=== PATIENT | female | born 1940 | race Caucasian/White ===

== ENCOUNTER 2021-08-10 08:47 | Observation (INO) ==
[2021-08-10] MEDS ORDERED: Ondansetron 4 mg VIAL 2 MG/ML 2 ml VIAL IV ONE (09:06)
[2021-08-10] MEDS ORDERED: Lactated Ringers 1000 ml BAG 1,000 ML IV ONE (09:06)
[2021-08-10 10:07] LABS: ABS Lymphocytes 0.3 10^3/ul (1.0-4.8); ABS Monocytes 0.6 10^3/ul (0-0.8); ABS Neutrophils 9.7 10^3/ul (1.5-7.7); Hematocrit 46 % (35-47); Hemoglobin 15.2 g/dL (12.0-16.0); Mean Corpuscular HGB Conc 33 g/dL (31-36); Mean Corpuscular Hemoglobin 31 pg (27-31); Mean Corpuscular Volume 93 fL (80-97); Mean Platelet Volume 9.6 fL (7.4-10.4); Platelet Count 164 10^3/uL (150-450); Red Cell Distribution Width 13 % (10-15); White Blood Count 10.7 10^3/uL (3.5-10.8)
[2021-08-10 10:34] LABS: Albumin 4.6 g/dL (3.2-5.2); Albumin/Globulin Ratio 1.6 (1-3); C Reactive Protein 5.3 mg/L (<8.01); Calcium 9.5 mg/dL (8.6-10.3); Globulin 2.8 g/dL (2-4); Total Bilirubin 0.7 mg/dL (0.2-1.0); Total Protein 7.4 g/dL (6.4-8.9); eGFR CKD-EPI 87.5 (>60)
[2021-08-10] MEDS ORDERED: KCL 20 MEQ/100 ML IVPREMIX 20 MEQ/100 ML BAG IV ONE (10:53)
[2021-08-10] MEDS ORDERED: Ondansetron 4 mg VIAL 2 MG/ML 2 ml VIAL IV PRN (11:05)
[2021-08-10 11:38] LABS: Magnesium 2.1 mg/dL (1.9-2.7)
[2021-08-10 11:50] LABS: High Sensitivity Troponin 1 Hr 7 pg/mL (<15)
[2021-08-10] MEDS ORDERED: Lactated Ringers 1000 ml BAG 1,000 ML IV SCH (12:00)
[2021-08-10] MEDS: Potassium Chloride IV 20 MEQ in Lactated Ringers 1000 ml BAG 1,000 ML IVPB SCH (13:06)
[2021-08-10] MEDS ORDERED: NFT: IPRATROPIUM BR (NF)0.03% NASAL 1 SPRAY BTL BOTH NARES PRN (15:52)
[2021-08-10] MEDS ORDERED: NFT: Azelastine/Fluticasone 137-50 MCG BTL (NF) BOTH NARES PRN (15:52)
[2021-08-10] MEDS: Heparin 5000 UNITS/ML 1 mL VIAL SUBCUT SCH (21:01)
[2021-08-11] MEDS: Potassium Chloride IV 20 MEQ in Lactated Ringers 1000 ml BAG 1,000 ML IVPB SCH ×3 (03:08→17:53)
[2021-08-11 04:33] LABS: Urine Appearance Clear; Urine Bilirubin Negative (Negative); Urine Blood Negative (Negative); Urine Color Yellow; Urine Glucose Negative (Negative); Urine Ketones Negative (Negative); Urine Nitrite Negative (Negative); Urine Protein Negative (Negative); Urine Specific Gravity 1.006 (1.002-1.030); Urine Urobilinogen Negative (Negative)
[2021-08-11 05:53] LABS: Urine Bacteria Absent (Absent); Urine Red Blood Cell Absent (Absent); Urine Squamous Epithelial Cell Present (Absent); Urine White Blood Cell 1+(6-10/hpf) (Absent)
[2021-08-11 06:25] LABS: ABS Eosinophils 0.1 10^3/ul (0-0.6); ABS Lymphocytes 1.8 10^3/ul (1.0-4.8); ABS Monocytes 0.8 10^3/ul (0-0.8); ABS Neutrophils 4.7 10^3/ul (1.5-7.7); Eosinophil % 0.9 %; Hematocrit 40 % (35-47); Hemoglobin 13.1 g/dL (12.0-16.0); Lymphocyte % 24.3 %; Mean Corpuscular HGB Conc 33 g/dL (31-36); Mean Corpuscular Hemoglobin 31 pg (27-31); Mean Corpuscular Volume 93 fL (80-97); Mean Platelet Volume 9.6 fL (7.4-10.4); Nucleated Red Blood Cells % 0.1; Platelet Count 153 10^3/uL (150-450); Red Blood Count 4.27 10^6 /uL (3.70-4.87); Red Cell Distribution Width 13 % (10-15); White Blood Count 7.3 10^3/uL (3.5-10.8)
[2021-08-11 07:12] LABS: Calcium 9.2 mg/dL (8.6-10.3); Potassium 3.6 mmol/L (3.5-5.0); eGFR CKD-EPI 87.2 (>60)
[2021-08-11] MEDS: Heparin 5000 UNITS/ML 1 mL VIAL SUBCUT SCH ×2 (09:20→21:32)
[2021-08-12] MEDS: Potassium Chloride IV 20 MEQ in Lactated Ringers 1000 ml BAG 1,000 ML IVPB SCH (07:10)
[2021-08-12] MEDS: Heparin 5000 UNITS/ML 1 mL VIAL SUBCUT SCH (07:11)
[2021-08-12 07:26] VITALS: BP 140/52
== END 2021-08-12 10:20 | disposition home or self-care (01) ==
LOC: ED 08:47 → INTOOBSV 11:05 → EDHOLD 11:05 → MED 15:33
PROVIDERS: ADMIT Student in an Organized Health Care Education/Training Program; ATTEND Student in an Organized Health Care Education/Training Program

== ENCOUNTER 2022-01-26 14:20 | Observation (INO) ==
[2022-01-26 16:04] LABS: ABS Lymphocytes 0.4 10^3/ul (1.0-4.8); ABS Neutrophils 11.6 10^3/ul (1.5-7.7); Hematocrit 44 % (35-47); Hemoglobin 14.7 g/dL (12.0-16.0); Lymphocyte % 2.8 %; Mean Corpuscular HGB Conc 33 g/dL (31-36); Mean Corpuscular Hemoglobin 31 pg (27-31); Mean Corpuscular Volume 92 fL (80-97); Mean Platelet Volume 9.7 fL (7.4-10.4); Platelet Count 182 10^3/uL (150-450); Red Blood Count 4.76 10^6 /uL (3.70-4.87); Red Cell Distribution Width 13 % (10-15)
[2022-01-26 16:08] LABS: INR 1.02 (0.89-1.11)
[2022-01-26] MEDS ORDERED: Ondansetron 4 mg VIAL 2 MG/ML 2 ml VIAL IV ONE (16:09)
[2022-01-26 16:32] LABS: Albumin 4.6 g/dL (3.2-5.2); Albumin/Globulin Ratio 1.8 (1-3); Calcium 9.9 mg/dL (8.6-10.3); Globulin 2.5 g/dL (2-4); Total Bilirubin 0.7 mg/dL (0.2-1.0); Total Protein 7.1 g/dL (6.4-8.9); eGFR CKD-EPI 87.3 (>60)
[2022-01-26] MEDS ORDERED: Iohexol 350 (CONTRAST) 500 ML MDV IV ONE (16:52)
[2022-01-26] MEDS ORDERED: Ondansetron 4 mg VIAL 2 MG/ML 2 ml VIAL IV PRN (19:12)
[2022-01-26] MEDS: KCL 20 MEQ/100 ML IVPREMIX 20 MEQ/100 ML BAG IV SCH ×2 (19:39→22:35)
[2022-01-26 19:43] LABS: Magnesium 2.1 mg/dL (1.9-2.7)
[2022-01-26] MEDS ORDERED: Lactated Ringers 1000 ml BAG 1,000 ML IV SCH (20:00)
[2022-01-26] MEDS: Heparin 5000 UNITS/ML 1 mL VIAL SUBCUT SCH (21:58)
[2022-01-27] MEDS: Heparin 5000 UNITS/ML 1 mL VIAL SUBCUT SCH ×3 (06:33→21:23)
[2022-01-27 06:49] LABS: ABS Lymphocytes 1.3 10^3/ul (1.0-4.8); ABS Monocytes 1.1 10^3/ul (0-0.8); Eosinophil % 0.4 %; Hematocrit 39 % (35-47); Hemoglobin 12.9 g/dL (12.0-16.0); Lymphocyte % 17.3 %; Mean Corpuscular HGB Conc 33 g/dL (31-36); Mean Corpuscular Hemoglobin 30 pg (27-31); Mean Corpuscular Volume 93 fL (80-97); Mean Platelet Volume 9.9 fL (7.4-10.4); Platelet Count 158 10^3/uL (150-450); Red Blood Count 4.24 10^6 /uL (3.70-4.87); Red Cell Distribution Width 13 % (10-15); White Blood Count 7.3 10^3/uL (3.5-10.8)
[2022-01-27 07:13] LABS: Potassium 3.1 mmol/L (3.5-5.0); eGFR CKD-EPI 87.6 (>60)
[2022-01-27] MEDS ORDERED: Potassium Chloride LIQUID 20 MEQ/15 ML LIQUID PO ONE (08:03)
[2022-01-28] MEDS: Heparin 5000 UNITS/ML 1 mL VIAL SUBCUT SCH (06:24)
[2022-01-28 07:29] LABS: Calcium 8.8 mg/dL (8.6-10.3); Potassium 3.6 mmol/L (3.5-5.0); eGFR CKD-EPI 82.9 (>60)
[2022-01-28 10:52] VITALS: BP 136/73
== END 2022-01-28 12:20 | disposition home or self-care (01) ==
LOC: ED 14:20 → EDHOLD 14:20 → SUATTDRO 19:13 → SSU 01-27 02:56
PROVIDERS: ADMIT Student in an Organized Health Care Education/Training Program; ATTEND Hospitalist